=== PATIENT | male | born 1945 | race Caucasian/White ===

== ENCOUNTER → 2019-08-06 | Outpatient (CLI) | payer OTHER | LOC: M.LAB 01:25 | DX: E87.6 Hypokalemia (principal) ==

== ENCOUNTER → 2019-12-24 | Outpatient (CLI) | payer OTHER | LOC: M.LAB 09:38 | PROVIDERS: ATTEND Internal Medicine Gastroenterology | DX: Z01.812 Encounter for preprocedural laboratory examination (principal); Z11.59 Encounter for screening for other viral diseases; Z86.010 Personal history of colon polyps ==

== ENCOUNTER → 2019-12-30 | Outpatient (CLI) | payer OTHER | LOC: M.LAB 04:01 | PROVIDERS: ATTEND Anesthesiology | DX: E87.6 Hypokalemia (principal) ==